=== PATIENT | female | born 1960 | race Asian ===

== ENCOUNTER → 2018-10-24 16:44 | Outpatient (CLI) | payer OTHER, SELFPAY ==
--- NOTE | 2018-10-24 16:48 | DI.MRI.S_ITS ---
PROCEDURE: MR KNEE RT WO CON INDICATIONS: MEDIAL PAIN IN RIGHT KNEE TECHNIQUE: Noncontrast sagittal PD fast spin echo and T2 fast spin echo with fat saturation, sagittal 3-D FLASH with fat saturation; coronal T1 spin echo and PD fast spin echo with fat saturation, and axial PD fast spin echo with fat saturation through the knee. COMPARISON: None. FINDINGS: Image quality: Excellent. Menisci: Lateral meniscus appears intact. Circumferential tear the medial meniscus involving the anterior horn, body and posterior horn, with macerated appearance of the body and near complete extrusion. Cruciate ligaments: The anterior and posterior cruciate ligaments appear intact. Medial structures: The medial collateral ligament appears intact. There is adjacent soft tissue edema however this could be reactive. The posterior oblique ligament, semimembranosus tendon insertions, oblique popliteal ligament, and meniscocapsular junction appear intact. Visualized portions of the pes anserinus tendons appear normal. No abnormal bursal fluid. Lateral structures: Age-indeterminate mild intrasubstance signal change of the lateral collateral ligament. The long and short heads of the biceps femoris tendon appear intact. The popliteus tendon appears normal; the popliteofibular ligament appears intact. The posterosuperior and anteroinferior popliteomeniscal fascicles appear intact. The arcuate and fabellofibular ligaments appear intact, on either side of the lateral inferior geniculate artery. Iliotibial band appears normal. Anterior structures: The quadriceps and patellar tendons appear intact. Mild proximal patellar tendinopathy. There is also prominent pretibial subcutaneous edema Patellar alignment is normal. No femoral trochlear dysplasia or ventral trochlear prominence. No edema in the infrapatellar fat pad. Bones and cartilage: No bone marrow contusions or fractures. Within the medial compartment, there is no full thickness loss of the femoral and tibial articular cartilage with mild subchondral marrow edema. Within the lateral compartment, mild diffuse partial thickness loss of the femoral articular cartilage. The tibial articular cartilage appears grossly preserved. Subchondral osteophyte seen involving the lateral femoral condyle image 36 series 11 Within the patellofemoral compartment, diffuse partial thickness loss of the femoral trochlear cartilage. There is full thickness loss of the cartilage overlying the lateral patellar facet. Subchondral cystic change and marrow edema present within the patella Joint space: Large joint effusion is seen. No definite intra-articular loose bodies. No Kiran's cyst. IMPRESSION: Complex circumferential tear of the medial meniscus with near complete extrusion. Degenerative joint disease, most pronounced in the patellofemoral compartment as above. Large joint effusion. Age-indeterminate sprain of the proximal lateral collateral ligament. Mild proximal patellar tendinopathy. Dictated by: Aaron Shah M.D. on 10/27/2018 at 8:43 Approved by: Aaron Shah M.D. on 10/27/2018 at 8:50
== END ==
PROVIDERS: Visit Provider Internal Medicine
DX: S83.231A Complex tear of medial meniscus, current injury, right knee, initial encounter (principal); S83.421A Sprain of lateral collateral ligament of right knee, initial encounter; M17.11 Unilateral primary osteoarthritis, right knee; M25.561 Pain in right knee; M25.461 Effusion, right knee
CPT/HCPCS: 73721

== ENCOUNTER → 2019-05-15 11:21 | Outpatient (CLI) | payer OTHER, SELFPAY ==
--- NOTE | 2019-05-15 | DI.MRI.S_ITS ---
PROCEDURE: MR KNEE RT WO CON INDICATIONS: OSTEOARTHRITIS RIGHT KNEE TECHNIQUE: Noncontrast sagittal PD fast spin echo and T2 fast spin echo with fat saturation, sagittal 3-D FLASH with fat saturation; coronal T1 spin echo and PD fast spin echo with fat saturation, and axial PD fast spin echo with fat saturation through the knee. COMPARISON: [facility], MR, MR KNEE RT WO CON, 10/24/2018, 16:54. FINDINGS: Image quality: Excellent. Menisci: There is peripheral displacement of the medial meniscus bowling medial collateral ligament. Complex tear involving body and posterior horn of medial meniscus is seen extending to both superior and inferior articulating surfaces. Oblique tear involving anterior horn of lateral meniscus is likely present extending to inferior articulating surface. The lateral meniscal root ligament appears intact. There is at least partially torn medial meniscal root ligament. Cruciate ligaments: The anterior and posterior cruciate ligaments appear intact. Medial structures: Local moderate grade MCL sprain near its femoral insertion is seen. The posterior oblique ligament, semimembranosus tendon insertions, oblique popliteal ligament, and meniscocapsular junction appear intact. Visualized portions of the pes anserinus tendons appear normal. No abnormal bursal fluid. Lateral structures: The lateral collateral ligament, long and short heads of the biceps femoris tendon appear intact. The popliteus tendon appears normal; the popliteofibular ligament appears intact. The posterosuperior and anteroinferior popliteomeniscal fascicles appear intact. The arcuate and fabellofibular ligaments appear intact, on either side of the lateral inferior geniculate artery. Iliotibial band appears normal. Anterior structures: The quadriceps and patellar tendons appear intact. Patellar alignment is normal. No femoral trochlear dysplasia or ventral trochlear prominence. No edema in the infrapatellar fat pad. Bones and cartilage: There is moderate medial femoral tibial compartment osteoarthritis with significant loss of joint space, subchondral sclerosis and marginal osteophyte formation is seen. Mild joint space narrowing and low-grade chondromalacia in lateral femoral tibial compartment and patellofemoral compartment are seen. Joint space: There is moderate to large amount of joint effusion, no gross loose body. No Kiran's cyst. Normal appearing synovial plicae are incidentally noted. IMPRESSION: 1. Moderate medial femorotibial compartment osteoarthritis and mild osteophytic changes in lateral femoral tibial compartment and patellofemoral compartment. Moderate joint effusion, no gross loose body. 2. Complex tear involving body and posterior horn of medial meniscus extending to both superior and inferior articulating surfaces. Partially torn medial meniscal root ligament. Oblique tear involving anterior horn of lateral meniscus extending to inferior articulating surface. 3. Low to moderate grade proximal MCL sprain. Anterior and posterior cruciate ligaments are intact. Dictated by: Miguel Franklin M.D. on 05/15/2019 at 14:36 Approved by: Miguel Franklin M.D. on 05/15/2019 at 14:53
== END ==
PROVIDERS: PCP Internal Medicine; Visit Provider Orthopaedic Surgery
DX: M17.11 Unilateral primary osteoarthritis, right knee (principal); M25.461 Effusion, right knee; S76.111A Strain of right quadriceps muscle, fascia and tendon, initial encounter; S83.411A Sprain of medial collateral ligament of right knee, initial encounter
CPT/HCPCS: 73721

== ENCOUNTER 2019-07-22 07:09 | Inpatient (IN) | payer OTHER, SELFPAY ==
[2019-07-10 09:57] VITALS: BMI 29.2
[2019-07-22] VITALS (18 sets, daily range): BP systolic 85–142; BP diastolic 43–77; PULSE 55–93; RESP 12–21; TEMP 36.1–37.1; O2SAT 93–100; BMI 28.3
--- NOTE | 2019-07-22 06:00 | DI.RAD.S_ITS ---
PROCEDURE: XR KNEE RT 1TO2V INDICATIONS: TKA TECHNIQUE: 2 view(s) of the knee acquired. COMPARISON: None. FINDINGS: Bones: Patient is status post knee joint arthroplasty. Hardware components are in expected positions. Visualized bony structures are intact. Soft tissues: Overlying postoperative changes are noted. IMPRESSION: Right knee arthroplasty with prosthesis in anatomic alignment. Dictated by: Rosalind Covington M.D. on 07/22/2019 at 10:56 Approved by: Rosalind Covington M.D. on 07/22/2019 at 10:56
[2019-07-22] MEDS: PREGABALIN 75 MG CAPSULE PO (07:49)
[2019-07-22] MEDS: CELECOXIB 200 MG CAPSULE PO (07:49)
[2019-07-22] MEDS: ACETAMINOPHEN 325 MG TABLET 975 MG PO ×3 (07:50→20:13)
[2019-07-22] MEDS: LACTATED RINGERS 1,000 ML 42 ML IV (08:00)
--- NOTE | 2019-07-22 08:19 | PM.PREOP ---
Pre-operative Note Interval Note History & Physical reviewed/Exam performed by Physician: Yes Changes to H&P: No
--- NOTE | 2019-07-22 08:36 | PM.HP.1 ---
History of Present Illness History of Present Illness Date Patient Seen: 07/22/19 Time Patient Seen: 08:37 Chief complaint: [id number] RT TKA Narrative: The patient is a 59-year-old woman who presents for right total knee arthroplasty. Her original surgery was delayed as her a.m. glucose was above 200. There has been no change in her medical history. She continues to have severe right knee pain would like to proceed with total knee replacement. Patient History Medical History Asthma (Acute) Diabetes (Acute) Glaucoma (Acute) HLD (hyperlipidemia) (Acute) HTN (hypertension) (Acute) Sleep apnea (Acute) Vertigo (Acute) Surgical History History of bilateral tubal ligation (Acute) History of bladder surgery (Acute) Hx of arthroscopy of right knee (Acute) S/P left unicompartmental knee replacement (Acute ~06/2014) Social History household members: spouse Smoking Status: Never smoker alcohol intake: never Family & Social History Social History: household members spouse Prior Living Arrangements House Tobacco & Substance use: Smoking Status Never smoker alcohol intake never Substance Use Type does not use Meds Home Medications and Allergies Home Medications Medication Instructions Recorded Confirmed Type aspirin [Aspir-81] 81 mg PO BEDTIME 06/09/19 07/22/19 History atorvastatin 80 mg PO BEDTIME 06/09/19 07/22/19 History dulaglutide [Trulicity] 0.75 mg SUBCUT QWEEK 06/09/19 07/22/19 History insulin glargine [Lantus Solostar 30 unit SUBCUT SEEINSTR 06/09/19 07/22/19 History U-100 Insulin] metformin 1,000 mg PO BID 06/09/19 07/22/19 History telmisartan-hydrochlorothiazid 1 tab PO DAILY 06/09/19 07/22/19 History [Micardis HCT] Allergies Allergy/AdvReac Type Severity Reaction Status Date / Time LATEX Allergy Intermediate RASH Uncoded 07/22/19 07:48 From DEMEROL AdvReac Intermediate RESTLESSNES Uncoded 07/22/19 07:48 S Review of Systems Review of Systems ROS Unobtainable: All systems reviewed & are unremarkable except as noted in HPI and below Exam Vital Signs (past 8 hours): - 07/22/19 07:57 Temperature 98.8 F Pulse Rate 93 H Respiratory Rate 18 Blood Pressure 142/77 H Pulse Oximetry 100 Oxygen Delivery Method Room Air Const General: cooperative and healthy appearing Orientation: alert and oriented x3 HENMT Head: normal to inspection Resp Effort & Inspection: normal respiratory effort Auscultation: clear to auscultation bilaterally Cardio Rate: regular rate Rhythm: regular rhythm Neuro Motor: strength 5/5 throughout Sensory Exam: no sensory deficits noted Extrem Other: Right knee range of motion is 5-120 degrees. There is varus alignment. There is a small effusion. Mild medial pseudolaxity. Assessment & Plan Assessment & Plan narrative: The patient presents for right total knee arthroplasty. The nature of the procedure including the risks, benefits, alternatives, postoperative course and expected outcome were discussed and all questions answered. The patient would like to proceed with surgery. The operative side was confirmed and marked. Consent obtained. Time Spent With Patient Time with patient: less than 15 minutes
--- NOTE | 2019-07-22 08:40 | PM.OP.1 ---
Operative Date/Time/Diagnoses Date of procedure: 07/22/19 Time of procedure: 09:56 Pre-op diagnosis: Right knee osteoarthritis Post-op diagnosis: same Procedure & Clinicians Procedure: Right total knee arthroplasty Same procedure as scheduled: Yes Indications: The patient presents today for total knee arthroplasty after failure of conservative treatment. The nature of the procedure including the risks and benefits, alternatives, postoperative course and expected outcome were discussed and all questions answered. Consent was obtained. Operative site confirmed and marked. Surgeon: James Baer Rubber Press Tender: Lon Galindo Anesthesia Type: General and Local Operative Notes Findings: Severe osteoarthritis with varus alignment. Closure Type: primary Specimen(s): none sent Prosthetic devices, grafts, tissues, transplants, or devices: Lovelace and NephRoyal Madina Donavan BCS: 3 femoral component, 2 tibial component, 9 mm BCS polyethylene tray and 29 x 7.5 mm round patella Applied: implant(s) Estimated Blood Loss (mL): 5 Blood products transfused: none Tourniquet time (min): 44 Procedure in detail: The patient was taken to the operative suite and placed under general anesthesia. The patient was given prophylactic antibiotics prior to surgery. The patient was also given tranexamic acid, 1 g, just prior to surgery for postoperative hemostasis. The lateral knee was prepped and the joint injected with 20 mL of 1% Lidocaine with epinephrine. The knee was then prepped and draped in usual sterile fashion. The leg was exsanguinated with an Esmarch dressing and the tourniquet raised to 250 torr. A 15 cm anterior incision was made. Next a medial trivector arthrotomy was made. The extensor mechanism was marked to ensure accurate repair. Initial exposing dissection was carried out medially and laterally. The knee was then extended and the patellar thickness was measured and a cut made removing approximately 7-8 mm of bone with a goal of restoring normal patellar thickness. The patella was then sized and drilled. Some excess lateral bone was excised and the patellofemoral ligament released. The tourniquet was then released. The knee was then flexed and the Lovelace [employer] femoral guide was placed. The anterior pins were placed and the distal rotation holes drilled. The distal cutting guide was placed and the templated distal femoral cut was made. The templating cutting block was then placed and the anterior, posterior and chamfer cuts made. The Lovelace [employer] tibial guide was placed and the alignment checked along the axis of the proximal tibial with a migdalia. The proximal tibial cut was then made with an oscillating saw. All meniscus and bony debris was then removed. Flexion extension gaps were checked. The knee was slightly tight medially compared to laterally in extension. There is moderate laxity laterally in flexion. This was corrected with routine soft tissue releases and osteophyte removal as well as some release of the MCL with an 18 gauge needle. There was still some increased lateral laxity particularly in flexion that could not be corrected. The soft tissues were then injected with a combination of 20 mL of half percent Marcaine with epinephrine and 20 mL of Exparel. The trial components were then placed. The knee went into full extension and flexion beyond 120?. There was good medial- lateral balance throughout motion was some increased lateral laxity especially in flexion. Patellar tracking was excellent. The trial components were removed and size is confirmed for the final implants. The knee was then exsanguinated with an Esmarch dressing and the tourniquet reapplied for cementing. The knee was cleansed with Pulsavac irrigation and dried. The final components were cemented in with high viscosity vacuum mixed bone cement with antibiotics. The knee was held in extension and the patellar clamp until the cement had adequately cured. The knee was then irrigated with dilute Betadine solution. The extensor mechanism was closed with 5 interrupted #1 Vicryl sutures in 90 degrees of flexion. The joint was then injected with a combination of 1 g of tranexamic acid and 20 mL of quarter percent Marcaine with epinephrine. The subcutaneous tissue was closed with 2-0 Vicryl. The skin was closed with alexa and surgical adhesive. An Aquacel dressing and Elieser wrap were then applied. Complications: none Post-operative Condition: stable Disposition: PACU Plan for aftercare: [facility] protocol for total knee arthroplasty.
[2019-07-22] MEDS: CEFAZOLIN 2 GM/100 ML FROZ.PIGGY IV ×2 (08:44→16:35)
--- NOTE | 2019-07-22 08:48 | SUR.OPER ---
Supine on padded OR bed. Pillow under head, arms secured on padded armboards <90 degree abduction. Safety belt across torso. Non-operative leg secured with tape over blanket over lower leg. Operative leg secured in DeMayo/Chidi positioner. Foam padded brace at thigh of operative leg.
[2019-07-22] MEDS: BUPIVACAINE 0.25% W/ EPI (PF) 20 ML, TRANEXAMIC ACID 1,000 MG, SODIUM CHLORIDE 0.9% 10 ML INJ (09:11)
[2019-07-22] MEDS: LIDOCAINE 1% W/EPI 20 ML INJ (09:11)
[2019-07-22] MEDS: BUPIVACAINE 0.25% W/ EPI (PF) 40 ML, BUPIVACAINE LIPOSOME 266 MG, SODIUM CHLORIDE 0.9% ... INJ (09:13)
[2019-07-22] MEDS: TRANEXAMIC ACID 1,000 MG VIAL 1000 MG IV (09:17)
[2019-07-22] MEDS: SODIUM CHLORIDE IRRIG SOLUTION 250 ML, POVIDONE-IODINE SPONGE STICKS 1 APPLIC IRR (09:18)
[2019-07-22] MEDS: LACTATED RINGERS 1,000 ML 125 ML IV ×2 (11:44→20:13)
--- NOTE | 2019-07-22 12:56 | PC.NURSE ---
Addendum entered by Megan Rodriguez R.N. 07/22/19 15:09: Patient had 175cc emesis. Addendum entered by Megan Rodriguez R.N. 07/22/19 14:56: Pt up to bsc with therapy, became nauseated and unable to void at this time. Assisted back to bed, 4mg IVP zofran given. Original Note: Pt alert, oriented, denies pain and nausea, refused snack at this time, taking sips of water. PPP RLE, scd's on, VSS patient oriented to room and call light.
--- NOTE | 2019-07-22 14:10 | PT.IIE ---
Current Diagnoses Unilateral primary osteoarthritis, right knee (07/22/19) Surgery Performed Operation Date: 07/22/19 08:45 Actual Procedures p Total Knee Arthroplasty(Right) - James Baer MD Surgical History (Last Reviewed 07/22/19 @ 08:38 by James Baer MD) History of bilateral tubal ligation (Acute) History of bladder surgery (Acute) Hx of arthroscopy of right knee (Acute) S/P left unicompartmental knee replacement (Acute ~06/2014) Medical History (Last Reviewed 07/22/19 @ 08:38 by James Baer MD) Asthma (Acute) Diabetes (Acute) Glaucoma (Acute) HLD (hyperlipidemia) (Acute) HTN (hypertension) (Acute) Sleep apnea (Acute) Vertigo (Acute) Physical Therapy Inpatient Evaluation/Re-Eval M1 PT/OT-IP Prior Functional Status Start: 07/22/19 15:33 Freq: NEEDED Status: Active Protocol: Document 07/22/19 14:10 AB (Rec: 07/22/19 15:53 AB [id number]) Medical Review Prior Functional Status Medical History Reviewed Yes Communication able to make needs known Mobility and Gait pt stated that she is independent with all mobilities and ambulation without AD Social History Household Members spouse Living Arrangements House Number of Floors (Floors) Two Floors Number of Stairs To Enter/Railing? 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 [employer] M2 PT-IP Current Condition Start: 07/22/19 15:33 Freq: NEEDED Status: Active Protocol: Document 07/22/19 14:10 AB (Rec: 07/22/19 15:53 AB [id number]) Physical Therapy Current Condition Current Condition Evaluation Date 07/22/19 Treatment Diagnosis s/p R TKA; difficulty in walking Onset Date 07/22/19 Weight Bearing Status Weight Bearing Status Weight Bear as Tolerated M3 PT-IP Subjective Start: 07/22/19 15:33 Freq: NEEDED Status: Active Protocol: Document 07/22/19 14:10 AB (Rec: 07/22/19 15:53 AB [id number]) Subjective Physical Therapy Visit Type Type Initial Evaluation Visit Start Time 14:10 Visit Stop Time 14:54 Total Visit Minutes 44 Number of PRODUCTION FLOATER Visits 0 Physical Therapy Visit Comments Patient Comments pt requesting to use the toilet but c/o still feeling a little numb on BLE Therapy Pain Assessment Pain When Pain Assessed During Mobility Pain Present Pain Present Pain Reported Location Right Knee Intensity 7 Scale Used Numeric (1 - 10) Description With Movement Pain Management Techniques Apply Cold,Re-positioning, Timing of Activity with Medications M4 PT-IP Mobility and Gait Start: 07/22/19 15:33 Freq: NEEDED Status: Active Protocol: Document 07/22/19 14:10 AB (Rec: 07/22/19 15:53 AB [id number]) PT-Bed Mobility Assessment Supine to Sit Supine to Sit Minimal Assistance,1 Person Assistance Sit to Supine Sit to Supine Standby Assistance Scooting Scooting to Edge of Bed Standby Assistance PT-Transfer Assessment Sit to and From Stand Sit to and from Stand Moderate Assistance,1 Person Assistance,Use of Upper Extremities Equipment Transfer Assistive Device Gait Belt,Front Wheeled Walker Orthotic/Prosthetic Devices or Brace: No Transfers Transfer Destination Bedside Commode Transfer Technique Stand Step Pivot Transfer Ability Level of Assist Maximum Assistance,1 Person Assistance,2 Person Assistance ,Use of Upper Extremities Comments Mobility Comments BP supine: 110/63. pt completed supine to sit min A and cues. required CGA for initial sitting balance. c/o dizziness/nausea. BP: 118/68. pt requested to use the toilet and completed sit to stand from EOB mod A and cues. pt with c/o numbness on LE and has decrease motor control affecting mobility. pt completed stand step pivot transfer using FWW max A and max cues. BP after transfer: 120/64 pt completed sit to stand from bedside commode max A and cues. NAC present and provided CGA for safety. completed steps towards the bed using FWW max A x 1-2 and max cues. pt was able to take side steps towards HOB using FWW max A x 1-2. BP: 151/60 pt completed sit to supine SBA . positioned pt on the bed. call light and table placed within reach. BP checked in supine: 116/66 Gait Assessment Gait Gait Assistance Required: Maximum Assistance,1 Person Assist,2 Person Assist Distance (Feet) 3 Able to Maintain Weight Bearing Status Yes During Gait Assistive Devices Assistive Device Gait Belt,Tripod Cane/Hurry Cane,Front Wheeled Walker Orthotic/Prosthetic Devices or Brace: No Gait Deviations General Gait Pattern Antalgic,Decreased Stride Length,Decreased Feet Clearance,Narrow Based Gait, Step-to Gait Factors Limiting Gait Function Factors Limiting Gait Function Decreased Activity Tolerance, Decreased Sensation,Decreased Strength,Difficulty Following Directions,Incoordination, Limited Range of Motion,Pain, Poor Balance,Poor Safety Awareness PT-Balance Assessment Sitting Balance and Reactions Static Sitting Balance Ability Good Dynamic Sitting Balance Ability Good Standing Balance and Reactions Static Standing Balance Ability Fair Dynamic Standing Balance Ability Poor Device Used FWW M5 PT-IP Objective Assessments Start: 07/22/19 15:33 Freq: NEEDED Status: Active Protocol: Document 07/22/19 14:10 AB (Rec: 07/22/19 15:53 [id number]) Orientation Orientation/Cognition Level of Alertness Alert Orientation Name,Place,Situation Language Function Ability No Deficits Noted Safety Awareness Decreased Safety Awareness Memory Description Short Term Impaired Gross Range of Motion Lower Extremity ROM Assessment Right Impaired Impairments R knee flexion: ~ 70 deg Strength Lower Extremity Strength Assessment Right Impaired Hip 3+/5 Knee 3+/5 Sensation Assessment Sensation Gross Sensation Right LE Impaired,Left LE Impaired Light Touch Impaired Proprioception (Position) Impaired Sensation Description Numbness M6 PT-IP Treatment Start: 07/22/19 15:33 Freq: NEEDED Status: Active Protocol: Document 07/22/19 14:10 AB (Rec: 07/22/19 15:53 [id number]) Physical Therapy Treatment Exercises Exercises Heel Slides Education Education Provided Precautions,Weight Bearing Status,Post-Op Packet,Safety M7 PT-IP Assessment and Plan Start: 07/22/19 15:33 Freq: NEEDED Status: Active Protocol: Document 07/22/19 14:10 AB (Rec: 07/22/19 15:53 [id number]) PT Summary Assessment and Plan Potential Rehabilitation Potential Good Status of Condition at Evaluation Evolving Summary Impairments Pain,ROM,Strength,Balance, Coordination,Sensation,Tone, Cognition,Bed Mobility, Transfers,Gait,Activity Tolerance Assessment Summary pt requiring max A x 1-2 with mobility and is not able to stabilize LE without assistance due to c/o numbness and decrease motor control. pt just had surgery this morning and will likely improve during hospital stay. will continue to assess progress. pt plans to go home with spouse to assist her. will have to conduct caregiver training when appropriate as well as stair training. Goals Bed Mobility Goal Independent Transfer Goal Standby Assistance,Front Wheeled Walker Gait Goal Standby Assistance,Front Wheel Walker Gait Distance 150 Other Goals up/down 3 steps using SPC CGA Days to Meet Goals 5 Frequency of Treatment Frequency Of Treatment Twice a Day Treatment Plan Physical Therapy Treatment Plan Bed Mobility Training,Transfer Training,Gait Training, Therapeutic Exercise,Balance Retraining,Post Op Education, Discharge Planning,Hot or Cold Pack,Neuromuscular Re-ed, Coordination Retraining,Manual Therapy Other Recommendations and Next Treatment ambulation, transfers, Focus caregiver training, stair training Recommendations To Nursing Amount of Assist Needed 2 Person Assist Discharge Recommendations PT Discharge Recommendations Home with / Assist, Outpatient PT
[2019-07-22] MEDS: ASPIRIN EC 81 MG TABLET PO ×2 (14:12→20:14)
[2019-07-22] MEDS: ONDANSETRON 4 MG/2 ML INJ IV (14:49)
--- NOTE | 2019-07-22 17:36 | PC.NURSE ---
Addendum entered by Jennyfer Lopez R.N. 07/22/19 21:47: Pt resting at intervals this evening. Med at 1820 w/percolone w/ some relief. Had 500cc emesis min shift then states she felt better. HS CBG = 108, pt refused insulin, stating that I will drop to much at night Dsg to remains CDI. IVF continue as per orders. Call light w/in reach/ bed alarm on for pt safety. Continue w/plan of care. Original Note: Pt resting quietly at this time. Lungs clear, SpO2 98% RA Dsg to right surgical knee CDI. IV LR @ 125cc/hr infusing via pump into left hand w/o incidence. Stable post op course. Call light w/in reach/bed alarm on for pt safety.
[2019-07-22] MEDS: OXYCODONE IR 5 MG TABLET 10 MG PO (18:18)
--- NOTE | 2019-07-22 20:12 | RT ---
OK FOR PT TO USE HOME CPAP PER T/O BY DR. DURHAM
[2019-07-22] MEDS: ATORVASTATIN 20 MG TABLET 80 MG PO (20:14)
[2019-07-22] MEDS: METFORMIN XR 500 MG TABLET 1000 MG PO (20:16)
[2019-07-23] VITALS (7 sets, daily range): BP systolic 110–158; BP diastolic 59–74; PULSE 55–68; RESP 14–20; TEMP 36.6–37; O2SAT 96–100
[2019-07-23] MEDS: OXYCODONE IR 5 MG TABLET 10 MG PO ×2 (00:53→08:15)
[2019-07-23] MEDS: CEFAZOLIN 2 GM/100 ML FROZ.PIGGY IV (00:54)
--- NOTE | 2019-07-23 01:39 | PC.NURSE ---
Addendum entered by Shree Gambino R.N. 07/23/19 05:48: 0500: CBG re-check 96. Pt states she feels better. 0530: Pt had small emesis. CBG re-check 132. Pt states she feels better. Addendum entered by Shree Gambino R.N. 07/23/19 04:49: 0400: Pt calling, states she feels shaky. CBG 72. Juice given, pt sipping on juice. 0425: Pt had emesis of 250cc, looking like the apple juice she just drank. CBG re-check 77. 0430: Zofran 4mg given IV. 0445: CBG re-check 74. Call to Dr. Richardson. New orders are to change IV solution to D5 1/2NS at 125cc/hr, and add D50% prn per protocol to med list. Original Note: Scrub Wheel Operator Note: 0030: Awake, having snack. Vital signs stable. IV in place in lt wrist with LR infusing at 125cc/hr. Dressing to rt knee cdi, with kathe wrap intact over dressing. SCDs on. Pt has home CPAP on. resting at bedside. 0100: Medicated for pain with Oxycodone 10mg po.
[2019-07-23] MEDS: ONDANSETRON 4 MG/2 ML INJ IV ×2 (04:45→09:10)
[2019-07-23] MEDS: DEXTROSE 5%-0.45% NS 1,000 ML 125 ML IV (05:00)
[2019-07-23 07:05] LABS: Hematocrit 29.4 % (36-46)
[2019-07-23] MEDS: ACETAMINOPHEN 325 MG TABLET 975 MG PO ×2 (08:22→18:14)
[2019-07-23] MEDS: hydroCHLOROthiazide 25 MG TABLET PO (08:23)
[2019-07-23] MEDS: METFORMIN XR 500 MG TABLET 1000 MG PO ×2 (08:23→22:41)
[2019-07-23] MEDS: ASPIRIN EC 81 MG TABLET PO ×2 (08:23→22:41)
[2019-07-23] MEDS: TELMISARTAN 40 MG TABLET 80 MG PO (08:24)
--- NOTE | 2019-07-23 08:33 | PM.DS.1 ---
History of Present Illness History of Present Illness Date Patient Seen: 07/23/19 Time Patient Seen: 08:33 Chief complaint: [id number] RT TKA Narrative: Patient has some nausea and vomited x4 last night. Still has some nausea but no vomiting this morning. Patient has been able to get up a few times with assistance to use bedside commode. Physical therapy was by yesterday but lower extremities worse still numb. Pain is 7/10. is home available to assist her. She does have 3 steps into her house. She does wish to go home today if safe to do so. Denies fever chills. Discharge Providers Provider Date of admission: 07/22/19 07:09 Discharge Date: 07/23/19 Primary care physician: Nadja Edward MD Consults: 07/22/19 11:36 Consult to Discharge Planning Routine Comment: Consult to Physical Therapy Evaluate & Treat Comment: Physician Instructions: postop TKA protocol Consult to Respiratory Therapy Evaluate & Treat Comment: Physician Instructions: Evaluate and treat Discharge provider: Lon Galindo PA-C Summary Hospital Course Discharge Diagnosis: Status post right total knee arthroplasty secondary to severe right knee osteoarthritis Obesity, diabetes Hospital Course: Procedure: Right total knee arthroplasty Same procedure as scheduled: Yes Indications: The patient presents today for total knee arthroplasty after failure of conservative treatment. The nature of the procedure including the risks and benefits, alternatives, postoperative course and expected outcome were discussed and all questions answered. Consent was obtained. Operative site confirmed and marked. Surgeon: James Baer Pneumatic Deicer Inspector: Lon Galindo Anesthesia Type: General and Local Operative Notes Findings: Severe osteoarthritis with varus alignment. Closure Type: primary Specimen(s): none sent Prosthetic devices, grafts, tissues, transplants, or devices: [employer]ace [employer] Gisselleney BCS: 3 femoral component, 2 tibial component, 9 mm BCS polyethylene tray and 29 x 7.5 mm round patella Applied: implant(s) Estimated Blood Loss (mL): 5 Blood products transfused: none Tourniquet time (min): 44 Patient admitted to the hospital for the above-mentioned procedure. Consent obtained. Patient taken to the operating room underwent right total knee arthroplasty. Patient back in her room recovering well as in stable condition. Patient has some issues with low blood sugars last night and nausea vomiting. Blood sugar was up this morning. Nausea mild no vomiting. She has 3 steps into her house. She does wish to go home with her today is safe to do so. Exam Vital Signs (past 8 hours): - 07/23/19 04:00 07/23/19 08:30 Temperature 97.9 F 98.6 F Pulse Rate 60 55 L Respiratory Rate 18 15 Blood Pressure 110/59 L 115/67 Pulse Oximetry 99 98 Oxygen Delivery Method Room Air Oxygen Flow Rate 0 Narrative Exam Narrative: A 59-year-old female sitting comfortably in bedside chair in no apparent distress. Right knee dressing is clean, dry and intact. Sensation intact to light touch bilateral lower extremities. Motor functions intact distal right lower extremity. Right leg is warm and dry. Objective Labs Result Diagrams: 07/23/19 06:26 Labs: Laboratory Results - last 24 hr 07/23/19 06:26 Hgb 10.0 L Hct 29.4 L Discharge Plan Discharge Plan Patient Disposition: Home Discharge comment: DC home today after PT Discharge Med Rec/Prescriptions Prescriptions: New hydroxyzine pamoate [Vistaril] 25 mg capsule 25 mg PO QID PRN (Reason: nausea and vomiting) Qty: 30 RF: 1 Continued atorvastatin 80 mg Tablet 80 mg PO BEDTIME RF: 0 metformin 500 mg Tablet Extended Release 24 Hr 1,000 mg PO BID RF: 0 telmisartan-hydrochlorothiazid [Micardis HCT] 80-25 mg Tablet 1 tab PO DAILY RF: 0 Lantus Solostar U-100 Insulin 100 unit/mL (3 mL) Insulin Pen 30 unit SUBCUT SEEINSTR RF: 0 Trulicity 0.75 mg/0.5 mL Pen Injector 0.75 mg SUBCUT QWEEK RF: 0 Changed aspirin [Aspir-81] 81 mg Tablet,Delayed Release (Dr/Ec) 81 mg PO BID Qty: 0 RF: 0 Follow up/Referrals: James Baer MD [Physician] - (1 wk) Nadja Edward MD [Primary Care Provider] - Provider Discharge Instructions Diet: Carb-consistent/Diabetic Activity: WBAT Cold/Heat Therapy: per [facility] Other treatments: Tylenol 500 mg q.4 hours, ibuprofen 400 mg q.4 hours, aspirin 81 mg b.i.d., oxycodone as needed pain, Vistaril as needed nausea and muscle spasms Skin/Wound/Dressing Care Report to your healthcare provider any signs of infection, such as:: chills, fever, increased pain, unusual drainage and unusual redness Dressing: Keep clean and dry Discharge Data Primary Care Provider: Nadja Edward VTE Deep Vein Thrombosis/Pulmonary Embolism Present on Admission: No
[2019-07-23] MEDS: INSULIN GLARGINE 100 UNIT/ML 3ML PEN 20 UNIT SUBCUT (09:10)
--- NOTE | 2019-07-23 10:18 | PT.IPTN ---
Current Diagnoses Unilateral primary osteoarthritis, right knee (07/22/19) Surgery Performed Operation Date: 07/22/19 08:45 Actual Procedures p Total Knee Arthroplasty(Right) - James Baer MD Physical Therapy Treatment Note M2 PT-IP Current Condition Start: 07/22/19 15:33 Freq: NEEDED Status: Active Protocol: Document 07/22/19 14:10 AB (Rec: 07/22/19 15:53 AB [id number]) Physical Therapy Current Condition Current Condition Evaluation Date 07/22/19 Treatment Diagnosis s/p R TKA; difficulty in walking Onset Date 07/22/19 Weight Bearing Status Weight Bearing Status Weight Bear as Tolerated M3 PT-IP Subjective Start: 07/22/19 15:33 Freq: NEEDED Status: Active Protocol: Document 07/23/19 10:18 AB (Rec: 07/23/19 10:58 AB [id number]) Subjective Physical Therapy Visit Type Type Treatment Note Visit Start Time 10:18 Visit Stop Time 10:38 Total Visit Minutes 20 Number of RN UNIT MANAGER Visits 0 Physical Therapy Visit Comments Patient Comments pt c/o nausea, increase pain but agreeable to do PT Therapy Pain Assessment Pain When Pain Assessed At Rest Pain Present Pain Present Pain Reported Location Right Knee Intensity 7 Scale Used Numeric (1 - 10) Pain Management Techniques Apply Cold,Re-positioning, Timing of Activity with Medications M4 PT-IP Mobility and Gait Start: 07/22/19 15:33 Freq: NEEDED Status: Active Protocol: Document 07/23/19 10:18 AB (Rec: 07/23/19 10:58 AB [id number]) PT-Bed Mobility Assessment Sit to Supine Sit to Supine Standby Assistance PT-Transfer Assessment Sit to and From Stand Sit to and from Stand Minimal Assistance Equipment Transfer Assistive Device Gait Belt,Front Wheeled Walker Transfers Transfer Destination Bed Transfer Technique ambulated using FWW Transfer Ability Level of Assist Minimal Assistance,1 Person Assistance Comments Mobility Comments pt continues to complain of nausea. nurse stated that they are doing medication adjustment and pt was given nausea medication. pt found sitting on chair. completed R heel slides x 10 prior to mobility. pt requested to go back to bed. pt completed sit to stand min A and cues and pt ambulated ~ 12 ft to the bed using FWW min A and cues. pt required increase time to complete task. pt completed sit to supine SBA and assisted pt with positioning. call light and table placed within reach. ice pack provided. Gait Assessment Gait Gait Assistance Required: Minimum Assistance Distance (Feet) 12 Able to Maintain Weight Bearing Status Yes During Gait Assistive Devices Assistive Device Gait Belt,Front Wheeled Walker Orthotic/Prosthetic Devices or Brace: No Gait Deviations General Gait Pattern Antalgic,Decreased Stride Length,Decreased Feet Clearance Factors Limiting Gait Function Factors Limiting Gait Function Decreased Activity Tolerance, Decreased Strength,Pain,Poor Balance Comments Gait Comments pt required increase time to complete task. presents with antalgic gait. M5 PT-IP Objective Assessments Start: 07/22/19 15:33 Freq: NEEDED Status: Active Protocol: Document 07/22/19 14:10 AB (Rec: 07/22/19 15:53 AB [id number]) Orientation Orientation/Cognition Level of Alertness Alert Orientation Name,Place,Situation Language Function Ability No Deficits Noted Safety Awareness Decreased Safety Awareness Memory Description Short Term Impaired Gross Range of Motion Lower Extremity ROM Assessment Right Impaired Impairments R knee flexion: ~ 70 deg Strength Lower Extremity Strength Assessment Right Impaired Hip 3+/5 Knee 3+/5 Sensation Assessment Sensation Gross Sensation Right LE Impaired,Left LE Impaired Light Touch Impaired Proprioception (Position) Impaired Sensation Description Numbness M6 PT-IP Treatment Start: 07/22/19 15:33 Freq: NEEDED Status: Active Protocol: Document 07/22/19 14:10 AB (Rec: 07/22/19 15:53 AB [id number]) Physical Therapy Treatment Exercises Exercises Heel Slides Education Education Provided Precautions,Weight Bearing Status,Post-Op Packet,Safety M7 PT-IP Assessment and Plan Start: 07/22/19 15:33 Freq: NEEDED Status: Active Protocol: Document 07/23/19 10:18 AB (Rec: 07/23/19 10:58 AB [id number]) PT Summary Assessment and Plan Potential Rehabilitation Potential Good Summary Impairments Pain,ROM,Strength,Balance, Coordination,Sensation,Bed Mobility,Transfers,Gait, Activity Tolerance Progress Towards Goals Slow Progress due to Pain,Slow Progress due to Activity Tolerance Assessment Summary pt progressing slowly with mobility and unable to tolerate much due to c/o nausea. pt plans to go home and spouse will assist her but pt is not ready to d/c this morning due to decrease activity tolerance affecting mobility and ambulation. pt also c/o increase R knee pain to 7/10. will continue to assess. Goals Bed Mobility Goal Independent Transfer Goal Standby Assistance,Front Wheeled Walker Gait Goal Standby Assistance,Front Wheel Walker Gait Distance 150 Other Goals up/down 3 steps using SPC CGA Days to Meet Goals 5 Frequency of Treatment Frequency Of Treatment Twice a Day Treatment Plan Physical Therapy Treatment Plan Bed Mobility Training,Transfer Training,Gait Training, Therapeutic Exercise,Balance Retraining,Post Op Education, Discharge Planning,Hot or Cold Pack,Neuromuscular Re-ed, Coordination Retraining,Manual Therapy Other Recommendations and Next Treatment ambulation, transfers, Focus caregiver training, stair training Recommendations To Nursing Amount of Assist Needed 1 Person Assist Discharge Recommendations PT Discharge Recommendations Home with 10/06 Assist, Outpatient PT
--- NOTE | 2019-07-23 14:40 | PT.IPTN ---
Current Diagnoses Unilateral primary osteoarthritis, right knee (07/22/19) Surgery Performed Operation Date: 07/22/19 08:45 Actual Procedures p Total Knee Arthroplasty(Right) - James Baer MD Physical Therapy Treatment Note M2 PT-IP Current Condition Start: 07/22/19 15:33 Freq: NEEDED Status: Active Protocol: Document 07/22/19 14:10 AB (Rec: 07/22/19 15:53 AB [id number]) Physical Therapy Current Condition Current Condition Evaluation Date 07/22/19 Treatment Diagnosis s/p R TKA; difficulty in walking Onset Date 07/22/19 Weight Bearing Status Weight Bearing Status Weight Bear as Tolerated M3 PT-IP Subjective Start: 07/22/19 15:33 Freq: NEEDED Status: Active Protocol: Document 07/23/19 14:40 AB (Rec: 07/23/19 17:30 AB [id number]) Subjective Physical Therapy Visit Type Type Treatment Note Visit Start Time 14:40 Visit Stop Time 15:04 Total Visit Minutes 24 Number of PANTOGRAPH MACHINE SET UP OPERATOR Visits 0 Physical Therapy Visit Comments Patient Comments pt requested to use the toilet Therapy Pain Assessment Pain When Pain Assessed At Rest Pain Present Pain Present Pain Reported Location Right Knee Intensity 6 Scale Used Numeric (1 - 10) Pain Behaviors Facial Grimacing,Guarding Pain Management Techniques Apply Cold,Timing of Activity with Medications M4 PT-IP Mobility and Gait Start: 07/22/19 15:33 Freq: NEEDED Status: Active Protocol: Document 07/23/19 14:40 AB (Rec: 07/23/19 17:30 AB [id number]) PT-Bed Mobility Assessment Supine to Sit Supine to Sit Standby Assistance PT-Transfer Assessment Sit to and From Stand Sit to and from Stand Minimal Assistance Equipment Transfer Assistive Device Gait Belt,Front Wheeled Walker Orthotic/Prosthetic Devices or Brace: No Transfers Transfer Destination Toilet Transfer Technique pt ambulated using FWW Transfer Ability Level of Assist Minimal Assistance Comments Mobility Comments pt completed bed mobility supine to sit SBA and cues; completed sit to stand min A and cues and pt ambulated using FWW towards the toilet. pt was able to maintain standing balance CGA to min A while completing hygiene care and brief management. pt ambulated from the toilet to the chair ~ 8 ft using FWW min A and cues. Gait Assessment Gait Gait Assistance Required: Minimum Assistance Distance (Feet) 15 Able to Maintain Weight Bearing Status Yes During Gait Assistive Devices Assistive Device Gait Belt,Front Wheeled Walker Orthotic/Prosthetic Devices or Brace: No Gait Deviations General Gait Pattern Antalgic,Decreased Stride Length,Decreased Feet Clearance Factors Limiting Gait Function Factors Limiting Gait Function Decreased Activity Tolerance, Decreased Strength,Limited Range of Motion,Pain,Poor Balance Comments Gait Comments pt continues to c/o increase R knee pain affecting mobility. presents with antalgic gait and requires increase time to complete tasks. M5 PT-IP Objective Assessments Start: 07/22/19 15:33 Freq: NEEDED Status: Active Protocol: Document 07/22/19 14:10 AB (Rec: 07/22/19 15:53 AB [id number]) Orientation Orientation/Cognition Level of Alertness Alert Orientation Name,Place,Situation Language Function Ability No Deficits Noted Safety Awareness Decreased Safety Awareness Memory Description Short Term Impaired Gross Range of Motion Lower Extremity ROM Assessment Right Impaired Impairments R knee flexion: ~ 70 deg Strength Lower Extremity Strength Assessment Right Impaired Hip 3+/5 Knee 3+/5 Sensation Assessment Sensation Gross Sensation Right LE Impaired,Left LE Impaired Light Touch Impaired Proprioception (Position) Impaired Sensation Description Numbness M6 PT-IP Treatment Start: 07/22/19 15:33 Freq: NEEDED Status: Active Protocol: Document 07/23/19 14:40 AB (Rec: 07/23/19 17:30 AB [id number]) Physical Therapy Treatment Education Education Provided Safety M7 PT-IP Assessment and Plan Start: 07/22/19 15:33 Freq: NEEDED Status: Active Protocol: Document 07/23/19 14:40 AB (Rec: 07/23/19 17:30 AB [id number]) PT Summary Assessment and Plan Potential Rehabilitation Potential Good Summary Impairments Pain,ROM,Strength,Balance, Coordination,Sensation,Bed Mobility,Transfers,Gait, Activity Tolerance Progress Towards Goals Slow Progress due to Pain,Slow Progress due to Activity Tolerance Assessment Summary pt continues to c/o increase pain and have decrease activity tolerance affecting mobility. will continue to assess progress and if appropriate will conduct caregiver training. will also complete stair training prior to d/c but at this time, pt is not ready to d/c home. stair climbing not conducted due to pt's decrease activity tolerance and unable to tolerate ambulation as it is and is appropriate to do stair training at this time. Goals Bed Mobility Goal Independent Transfer Goal Standby Assistance,Front Wheeled Walker Gait Goal Standby Assistance,Front Wheel Walker Gait Distance 150 Other Goals up/down 3 steps using SPC CGA Days to Meet Goals 5 Frequency of Treatment Frequency Of Treatment Twice a Day Treatment Plan Physical Therapy Treatment Plan Bed Mobility Training,Transfer Training,Gait Training, Therapeutic Exercise,Balance Retraining,Post Op Education, Discharge Planning,Hot or Cold Pack,Neuromuscular Re-ed, Coordination Retraining,Manual Therapy Other Recommendations and Next Treatment ambulation, transfers, Focus caregiver training, stair training Recommendations To Nursing Amount of Assist Needed 1 Person Assist Discharge Recommendations PT Discharge Recommendations Home with 10/06 Assist, Outpatient PT
[2019-07-23] MEDS: MELOXICAM 7.5 MG TABLET 15 MG PO (15:26)
[2019-07-23] MEDS: HYDROCODONE/ACET 10/325 TABLET 1 TAB PO ×3 (15:27→23:48)
--- NOTE | 2019-07-23 15:41 | CM.DANOTE ---
DCP: Case received, EMR reviewed and met with patient. Introduced self and role. Was able to converse with patient and obtain baseline health information. DCP assessment completed with information currently available. Patient is a 59 year old female who admitted yesterday morning to the care of the orthopedic team. PCP: Dr. Edward. Payer: [employer]. Patient came to the hospital for a surgical procedure. She had right total knee arthroplasty. Patient had delayed surgery secondary to her glucose being elevated. She was able to have her surgery yesterday morning. Met with patient in her room. Pleasant, alert and oriented. She resides in [place] with her , Kirstie. 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 Her prime support is her , she has children in the [place] area. Patient also has a walker for use at home. She has stairs in her home, but will be staying on the main floor. P: DCP to continue to follow. She should be able to go home when she is medically stable, and cleared by P.T. Patient stated, she should be going home tomorrow, for she needs further stair training. Laney Joe RN/Health Tech
--- NOTE | 2019-07-23 20:54 | PC.NURSE ---
jesse note pt up in chair with ice pack to right knee. Assisted pt bathroom to void. Pt has excellent walker technique. Elastic bandage is CDI to knee. Medicated with Tylenol scheduled, then later with Gervais 10/325. Denies nausea/vomiting after meds.
[2019-07-23] MEDS: INSULIN GLARGINE 100 UNIT/ML 3ML PEN 10 UNIT SUBCUT (22:41)
[2019-07-23] MEDS: ATORVASTATIN 20 MG TABLET 80 MG PO (22:41)
[2019-07-24 04:27] VITALS: BP 152/75; PULSE 66; RESP 18; TEMP 36.3; O2SAT 99
[2019-07-24] MEDS: HYDROCODONE/ACET 10/325 TABLET 1 TAB PO ×2 (06:11→10:07)
[2019-07-24 07:20] VITALS: BP 150/69; PULSE 70; RESP 16; TEMP 36.6; O2SAT 93
--- NOTE | 2019-07-24 08:58 | PM.DS.1 ---
History of Present Illness History of Present Illness Date Patient Seen: 07/24/19 Time Patient Seen: 08:58 Chief complaint: [id number] RT TKA Narrative: Hospital day 3, postop day 2 following right total knee arthroplasty by Dr. Baer. Patient has remained stable. Has progressed well with physical therapy. Still needs stair training. She has noted nausea and other side effects with oxycodone. She does better with [place]. She is a [facility] patient and has prescription at home for oxycodone. Patient desiring to go home today. She does have physical therapy scheduled at [facility] in [place]. Discharge Providers Provider Date of admission: 07/22/19 07:09 Discharge Date: 07/24/19 Primary care physician: Nadja Edward MD Consults: 07/22/19 11:36 Consult to Discharge Planning Routine Comment: Consult to Physical Therapy Evaluate & Treat Comment: Physician Instructions: postop TKA protocol Consult to Respiratory Therapy Evaluate & Treat Comment: Physician Instructions: Evaluate and treat Discharge provider: Alexx Lopez PA-C Summary Hospital Course Discharge Diagnosis: Status post right total knee arthroplasty Hospital Course: Patient brought to hospital on 07/22/2019 for above noted surgery. She remained stable postoperatively. Progressed well with physical therapy. Ready for discharge home on postop day 2. Status at Discharge Cognitive/behavioral status at discharge: oriented Functional status at discharge: uses cane/walker Overall status at discharge: patient is progressing back to baseline Time Spent with Patient Time spent: Less than 30 minutes Exam Vital Signs (past 8 hours): - 07/24/19 04:27 07/24/19 07:20 Temperature 97.3 F L 97.9 F Pulse Rate 66 70 Respiratory Rate 18 16 Blood Pressure 152/75 H 150/69 H Pulse Oximetry 99 93 Oxygen Delivery Method Room Air Oxygen Flow Rate 0 Narrative Exam Narrative: Alert, oriented no acute distress sitting in chair. Legs. Elieser wrap an Aquacel dressing to right knee is dry without drainage or inflammation. Mild swelling of lower leg. No calf tenderness. Pulses symmetrical. Patient will do good leg extension from sitting position and flexion to 70?. Objective Labs Result Diagrams: 07/23/19 06:26 Discharge Plan Discharge Plan Patient Disposition: Home Discharge comment: DC home today after PT Discharge Med Rec/Prescriptions Prescriptions: New hydroxyzine pamoate [Vistaril] 25 mg capsule 25 mg PO QID PRN (Reason: nausea and vomiting) Qty: 30 RF: 1 ondansetron HCl [Zofran] 4 mg tablet 4 mg PO BID-TID PRN (Reason: nausea and vomiting) Qty: 30 RF: 1 hydrocodone-acetaminophen [[place]] 10-325 mg tablet 1 tab PO Q4H PRN (Reason: pain) Qty: 60 RF: 0 Continued atorvastatin 80 mg Tablet 80 mg PO BEDTIME RF: 0 metformin 500 mg Tablet Extended Release 24 Hr 1,000 mg PO BID RF: 0 telmisartan-hydrochlorothiazid [Micardis HCT] 80-25 mg Tablet 1 tab PO DAILY RF: 0 Lantus Solostar U-100 Insulin 100 unit/mL (3 mL) Insulin Pen 30 unit SUBCUT SEEINSTR RF: 0 Trulicity 0.75 mg/0.5 mL Pen Injector 0.75 mg SUBCUT QWEEK RF: 0 Changed aspirin [Aspir-81] 81 mg Tablet,Delayed Release (Dr/Ec) 81 mg PO BID Qty: 0 RF: 0 Follow up/Referrals: James Baer MD [Physician] - (1 wk) Nadja Edward MD [Primary Care Provider] - Provider Discharge Instructions Diet: Carb-consistent/Diabetic Activity: WBAT Cold/Heat Therapy: per [facility] Other treatments: Tylenol 500 mg q.4 hours, ibuprofen 400 mg q.4 hours, aspirin 81 mg b.i.d., oxycodone as needed pain, Vistaril as needed nausea and muscle spasms Skin/Wound/Dressing Care Report to your healthcare provider any signs of infection, such as:: chills, fever, increased pain, unusual drainage and unusual redness Dressing: Keep clean and dry Visit Report/Discharge Packet Instructions: DI for Knee Replacement Visit Report Forms: Stroke Signs & Symptoms Discharge Data Primary Care Provider: Nadja Edward Quality VTE Deep Vein Thrombosis/Pulmonary Embolism Present on Admission: No
[2019-07-24] MEDS: INSULIN GLARGINE 100 UNIT/ML 3ML PEN 20 UNIT SUBCUT (09:01)
[2019-07-24] MEDS: ACETAMINOPHEN 325 MG TABLET 975 MG PO (09:03)
[2019-07-24] MEDS: ASPIRIN EC 81 MG TABLET PO (09:04)
[2019-07-24] MEDS: METFORMIN XR 500 MG TABLET 1000 MG PO (09:04)
[2019-07-24] MEDS: hydroCHLOROthiazide 25 MG TABLET PO (09:04)
[2019-07-24] MEDS: TELMISARTAN 40 MG TABLET 80 MG PO (09:05)
--- NOTE | 2019-07-24 09:25 | PT.IPTN ---
Current Diagnoses Unilateral primary osteoarthritis, right knee (07/22/19) Surgery Performed Operation Date: 07/22/19 08:45 Actual Procedures p Total Knee Arthroplasty(Right) - James Baer MD Physical Therapy Treatment Note M2 PT-IP Current Condition Start: 07/22/19 15:33 Freq: NEEDED Status: Discharge Protocol: Document 07/22/19 14:10 AB (Rec: 07/22/19 15:53 AB [id number]) Physical Therapy Current Condition Current Condition Evaluation Date 07/22/19 Treatment Diagnosis s/p R TKA; difficulty in walking Onset Date 07/22/19 Weight Bearing Status Weight Bearing Status Weight Bear as Tolerated M3 PT-IP Subjective Start: 07/22/19 15:33 Freq: NEEDED Status: Discharge Protocol: Document 07/24/19 09:25 GGD (Rec: 07/24/19 12:26 GGD [id number]) Subjective Physical Therapy Visit Type Type Treatment Note Visit Start Time 09:00 Visit Stop Time 09:25 Total Visit Minutes 25 Number of AUTOM[employer]IC [employer] ADJUSTER Visits 1 Physical Therapy Visit Comments Patient Comments Pt willing to work with therapy. Therapy Pain Assessment Pain When Pain Assessed At Rest Pain Present Pain Present Pain Reported Location Right Knee Intensity 5 M4 PT-IP Mobility and Gait Start: 07/22/19 15:33 Freq: NEEDED Status: Discharge Protocol: Document 07/24/19 09:25 GGD (Rec: 07/24/19 12:26 GGD [id number]) PT-Transfer Assessment Sit to and From Stand Sit to and from Stand Contact Guard Assistance Equipment Transfer Assistive Device Gait Belt,Front Wheeled Walker Orthotic/Prosthetic Devices or Brace: No Transfers Transfer Destination Chair,Wheelchair Transfer Ability Level of Assist Contact Guard Assistance,Use of Upper Extremities Gait Assessment Gait Gait Assistance Required: Contact Guard Assist Distance (Feet) 30 Able to Maintain Weight Bearing Status Yes During Gait Assistive Devices Assistive Device Gait Belt,Front Wheeled Walker Orthotic/Prosthetic Devices or Brace: No Gait Deviations General Gait Pattern Antalgic,Decreased Stride Length,Decreased Feet Clearance Factors Limiting Gait Function Factors Limiting Gait Function Decreased Activity Tolerance, Decreased Strength,Limited Range of Motion,Pain,Poor Balance Stair Climbing Assessment Evaluation Level of Assist On Stairs Minimal Assistance Devices Stair Climbing Assistive Devices Straight Cane Technique/Endurance Stair Climbing Direction Ascend and Descend Stair Climbing Technique Step to Step Number of Steps Climbed 3 Stair Climbing Set # Repetitions (reps) 1 Comments Stair Climbing Comments Pt ambulate stairs with SPC and Min A for hand hold assist . M5 PT-IP Objective Assessments Start: 07/22/19 15:33 Freq: NEEDED Status: Discharge Protocol: Document 07/22/19 14:10 AB (Rec: 07/22/19 15:53 AB [id number]) Orientation Orientation/Cognition Level of Alertness Alert Orientation Name,Place,Situation Language Function Ability No Deficits Noted Safety Awareness Decreased Safety Awareness Memory Description Short Term Impaired Gross Range of Motion Lower Extremity ROM Assessment Right Impaired Impairments R knee flexion: ~ 70 deg Strength Lower Extremity Strength Assessment Right Impaired Hip 3+/5 Knee 3+/5 Sensation Assessment Sensation Gross Sensation Right LE Impaired,Left LE Impaired Light Touch Impaired Proprioception (Position) Impaired Sensation Description Numbness M6 PT-IP Treatment Start: 07/22/19 15:33 Freq: NEEDED Status: Discharge Protocol: Document 07/24/19 09:25 GGD (Rec: 07/24/19 12:26 GGD [id number]) Physical Therapy Treatment Exercises Exercises Ankle Pumps,Quad Sets,Seated Knee Flexion/Extension M7 PT-IP Assessment and Plan Start: 07/22/19 15:33 Freq: NEEDED Status: Discharge Protocol: Document 07/24/19 09:25 GGD (Rec: 07/24/19 12:26 GGD [id number]) PT Summary Assessment and Plan Summary Assessment Summary Pt is improving slowly. She was safe and stable with stair mobility. She is safe for home D/C when medically stable . Frequency of Treatment Frequency Of Treatment Twice a Day Treatment Plan Physical Therapy Treatment Plan Bed Mobility Training,Transfer Training,Gait Training, Therapeutic Exercise,Balance Retraining,Post Op Education, Discharge Planning,Hot or Cold Pack,Neuromuscular Re-ed, Coordination Retraining,Manual Therapy Recommendations To Nursing Amount of Assist Needed 1 Person Assist Discharge Recommendations PT Discharge Recommendations Home with Assistance, Outpatient PT
[2019-07-24] MEDS: MELOXICAM 7.5 MG TABLET 15 MG PO (10:07)
[2019-07-24 10:49] VITALS: PULSE 64; O2SAT 97
--- NOTE | 2019-07-24 11:25 | PC.NURSE ---
Day Shift- [place] prn effective pain management plan. Last at 1005 prior to discharge. Right knee aquacel dressing CDI, kathe wrap in place. CMS+. Pt had shower with TEST BORE HELPER/ assist. Discharge summary reviewed with pt. Reviewed verbally info on S/S of stroke as unable to print out info from several computers. No voiced concerns, states is ready to go home. Pt's present to drive pt home, [facility] has all belongings. Pt left unit at 1123 in no distress via wheelchair with TEST BORE HELPER escort.
== END 2019-07-24 11:23 | disposition home or self-care (01) | DRG 470 ==
PROVIDERS: Admitting Provider Orthopaedic Surgery; PCP Internal Medicine; Visit Provider Orthopaedic Surgery
PROC: 0SRC0JZ Replacement of Right Knee Joint with Synthetic Substitute, Open Approach (ICD-10-PCS; CPT 27447; principal; 2019-07-22 08:45)
DX: M17.11 Unilateral primary osteoarthritis, right knee (principal); E11.9 Type 2 diabetes mellitus without complications; E78.5 Hyperlipidemia, unspecified; I10 Essential (primary) hypertension; G47.33 Obstructive sleep apnea (adult) (pediatric); Z79.4 Long term (current) use of insulin; R11.0 Nausea
CPT/HCPCS: 36415; 73560; 82962; 85014; 85018; 94760; 94762; 97110; 97162; 97530; C1776; C9290; J0690; J2250; J2274; J2405; J2704

== ENCOUNTER → 2025-05-18 14:36 | Outpatient (CLI) | payer MEDICARE, OTHER, SELFPAY ==
[2025-05-18 14:24] VITALS: BMI 28.3
[2025-05-18 15:30] LABS: Hematocrit 38.9 % (36-46); Hemoglobin 12.8 g/dL (12.0-16.0); Mean Corpuscular HGB Conc 33.0 % (30-36); Mean Corpuscular Hemoglobin 29.3 PG (26-34); Mean Corpuscular Volume 88.7 fL (80-100); Platelet Count 281 X10^3/uL (150-400)
[2025-05-18 15:53] LABS: Alanine Aminotransferase 21 IU/L (<35); Albumin 4.6 g/dL (3.5-5.0); Albumin Globulin Ratio 1.8 (1.0-2.8); Alkaline Phosphatase 61 U/L (38-126); Blood Urea Nitrogen 16 mg/dL (7-17); Calcium 9.9 mg/dL (8.4-10.2); Carbon Dioxide 28 mmol/L (22-32); Chloride 100 mmol/L (98-107); Cholesterol 139 mg/dL (140-199); Estimated Glomerular Filt Rate > 60 mL/min (>60); Globulin 2.5 g/dL (1.7-4.1); Glucose 107 mg/dL (70-99); HDL Cholesterol 49 mg/dL (40-60); HEMOLYSIS < 15 (0-50); Hemoglobin A1C% w Est Avg Glu 6.6 % (4.0-6.0); Potassium 4.1 mmol/L (3.4-5.1); Sodium 137 mmol/L (137-145); Total Protein 7.1 g/dL (6.3-8.2); Triglycerides 71 mg/dL (35-150)
== END ==
PROVIDERS: PCP Family Medicine; Referring Provider Family Medicine; Visit Provider Family Medicine
DX: E11.9 Type 2 diabetes mellitus without complications (principal); E78.2 Mixed hyperlipidemia; I10 Essential (primary) hypertension; G47.33 Obstructive sleep apnea (adult) (pediatric)
CPT/HCPCS: 36415; 80053; 80061; 83036; 85027

== ENCOUNTER → 2025-09-03 13:40 | Outpatient (CLI) | payer MEDICARE, OTHER, SELFPAY ==
[2025-05-18 14:24] VITALS: BMI 28.3
[2025-09-03 15:30] LABS: Hemoglobin A1C% w Est Avg Glu 7.1 % (4.0-6.0)
[2025-09-03 15:47] LABS: Blood Urea Nitrogen 21 mg/dL (7-17); Calcium 9.8 mg/dL (8.4-10.2); Carbon Dioxide 29 mmol/L (22-32); Chloride 99 mmol/L (98-107); Estimated Glomerular Filt Rate > 60 mL/min (>60); Glucose 116 mg/dL (70-99); HEMOLYSIS 22 (0-50); Potassium 4.2 mmol/L (3.4-5.1); Sodium 138 mmol/L (137-145)
[2025-09-04 18:21] LABS: HIV 1 & 2 Ab/Ag 4th Gen Combo NEGATIVE (NEGATIVE); Hep C Virus Ab w/Reflex Quant NEGATIVE s/c (NEGATIVE)
== END ==
PROVIDERS: PCP Family Medicine; Referring Provider Family Medicine; Visit Provider Family Medicine
DX: Z00.00 Encounter for general adult medical examination without abnormal findings (principal); E11.9 Type 2 diabetes mellitus without complications; I10 Essential (primary) hypertension; E78.2 Mixed hyperlipidemia
CPT/HCPCS: 36415; 80048; 83036; 86803; 87389

== ENCOUNTER → 2025-10-08 11:54 | Outpatient (CLI) | payer MEDICARE, OTHER, SELFPAY ==
[2025-05-18 14:24] VITALS: BMI 28.3
--- NOTE | 2025-10-08 11:56 | DI.RAD.S_ITS ---
PROCEDURE: XR DEXA AXIAL SKELETON INDICATIONS: screening for disorder of bone density in 65F postMP COMPARISON: None. FINDINGS: Lumbar Spine: Bone mineral density 1.106 g/cm2, T score 0.0. Left Femoral Neck: Bone mineral density 0.704 g/cm2, T score -1.3. Left Hip: Bone mineral density 0.834 g/cm2, T score -0.9. Fracture Risk Calculation (when applicable): 10-year fracture risk of a major osteoporotic fracture 11% percent and of a hip fracture 1.2% percent. (T score greater or equal to -1.0 to: NORMAL) (T score from -1.1 to -2.4: OSTEOPENIA) (T score less than or equal to -2.5: OSTEOPOROSIS) IMPRESSION: Osteopenia with increased 10 year fracture risk as above. Follow-up guidelines as follows: Osteoporosis: Consider a repeat DEXA and Vertebral Fracture Assessment (VFA) exam in 2 years or sooner if medically necessary, to reassess this patient's status. Osteopenia: Consider a repeat DEXA in 2-3 years to reassess this patient's status, or if there is a new clinical indication. Normal: Consider a repeat DEXA in 5 years or sooner, or if there is a new clinical indication. All treatment decisions require clinical judgment and consideration of individual patient factors, including patient preferences, comorbidities, previous drug use, risk factors not captured in the FRAX model (e.g., frailty, falls, vitamin D deficiency, increased bone turnover, interval significant decline in bone density ) and possible under- or over-estimation of fracture risk by FRAX. In addition, the NOF Guide recommends that FDA-approved medical therapies be considered in postmenopausal women and men age >= 50 years with a: * Hip or vertebral (clinical or morphometric) fracture * T-score of <=-2.5 at the spine or hip * Ten-year fracture probability by FRAX of >= 3% for hip fracture or >=20% for major osteoporotic fracture. Dictated by: Miguel Franklin M.D. on 10/13/2025 at 16:00 Approved by: Miguel Franklin M.D. on 10/13/2025 at 16:00
== END ==
LOC: RAD 11:55
PROVIDERS: PCP Family Medicine; Referring Provider Family Medicine; Visit Provider Family Medicine
DX: M85.89 Other specified disorders of bone density and structure, multiple sites (principal)
CPT/HCPCS: 77080